=== PATIENT | female | born 1990 | race American Indian/Alaskan Native ===

== ENCOUNTER 2016-09-30 23:59 | Emergency (ER) | payer MEDICAID ==
[2016-10-01 01:28] LABS: Basophils % (Auto) 0.8 % (0.0-1.8); Eosinophils % (Auto) 2.8 % (0.0-4.3); Hematocrit 37.8 % (30.3-42.9); Hemoglobin 12.5 gm/dl (10.1-14.3); Mean Corpuscular HGB Conc 33 % (30-34); Mean Corpuscular Hemoglobin 28 pg (28-32); Mean Corpuscular Volume 86 fl (79-97); Platelet Count 320 K/mm3 (140-440); Red Blood Count 4.42 M/mm3 (3.65-5.03); Red Cell Distribution Width 13.7 % (13.2-15.2)
[2016-10-01 01:41] LABS: Anion Gap 13 mmol/L; BUN/Creatinine Ratio 13.75; Blood Urea Nitrogen 11 mg/dL (7-17); Calcium 8.9 mg/dL (8.4-10.2); Carbon Dioxide 26 mmol/L (22-30); Glucose 105 mg/dL (65-100); Potassium 3.7 mmol/L (3.6-5.0); Sodium 135 mmol/L (137-145)
[2016-10-01 01:43] LABS: Creatine Kinase MB 1.3 ng/mL (0.0-4.0)
--- NOTE | 2016-10-01 04:22 | Cat Scan Report ---
FINAL REPORT PROCEDURE: CT HEAD/BRAIN WO CON TECHNIQUE: Computerized tomography of the head was performed without contrast material. HISTORY: headache worsening COMPARISON: No prior studies are available for comparison. FINDINGS: Skull and scalp: Normal. Paranasal sinuses: Normal. Ventricles and subarachnoid spaces: Normal. Cerebrum: No evidence of hemorrhage, acute infarction or mass . Cerebellum and brainstem: No evidence of hemorrhage, acute infarction or mass. Vasculature: Normal. Comments: None. IMPRESSION: Normal Examination
--- NOTE | 2016-10-01 04:38 | Emergency Department Report ---
ED Headache HPI - General Chief Complaint: Headache Stated Complaint: HEADACHE/DIZZINESS Time Seen by Provider: 10/01/16 02:50 - History of Present Illness Initial Comments: 26-year-old female past medical history migraines presents with a complaint of 3 days of migraine headache. Patient denies any fever or chills no nausea or vomiting. Patient is awake alert and oriented 3 not in acute distress. Patient states she felt significant headache earlier but has since resolved. Patient states that intermittently for the last 3 days she had sensation of tingling in her fingers associated with headache. Patient speaking in full sentences is awake alert and oriented 3 denies any photo or phonophobia, as any blurry vision, denies any dizziness, his fully lucid during interview, denies any upper or lower extremities paresthesias no reports of slurred speech or paralysis. Denies any neck rigidity. Denies any recent head or neck trauma. Denies any drug use. Denies any difficulty speaking denies any facial paresthesias. Patient states she has not seen a neurologist for this issue. does not have PMD Timing/Duration: episodic, waxing and waning Quality: mild Head Injury Location: frontal Recent Head Trauma: frequent headaches Allergies/Adverse Reactions: Allergies No Known Allergies Allergy (Verified 08/02/14 05:50) Home Medications: Ambulatory Orders Nitrofurantoin Freeborn/M-Cryst [Macrobid] 100 mg PO Q12HR #14 capsule 08/02/14 Acetaminophen/Codeine [Acetaminophen-Codeine #3 TAB] 1 tab PO Q6H PRN #20 tab Cephalexin [Keflex] 500 mg PO Q6H #28 capsule 09/03/14 Cyclobenzaprine HCl [Flexeril 5mg] 5 mg PO QHS #15 tablet 09/03/14 Naproxen [Naprosyn TAB] 500 mg PO BID PRN #30 tablet 10/01/16 ED Review of Systems ROS: Stated complaint: HEADACHE/DIZZINESS Other details as noted in HPI Constitutional: denies: chills, fever Eyes: denies: eye pain, eye discharge, vision change ENT: denies: ear pain, throat pain Respiratory: denies: cough, shortness of breath, wheezing Cardiovascular: denies: chest pain, palpitations Endocrine: no symptoms reported Gastrointestinal: denies: abdominal pain, nausea, diarrhea Genitourinary: denies: urgency, dysuria, discharge Musculoskeletal: denies: back pain, joint swelling, arthralgia Skin: denies: rash, lesions Neurological: headache, paresthesias (sensation of tingling in fingers with episode of headache). denies: weakness Psychiatric: denies: anxiety, depression Hematological/Lymphatic: denies: easy bleeding, easy bruising ED Past Medical Hx - Past Medical History Previous Medical History?: Yes Additional medical history: Headaches with Dizziness - Surgical History Past Surgical History?: Yes Additional Surgical History: x 2 - Social History Smoking Status: Never Smoker Substance Use Type: None - Medications Home Medications: Home Medications Medication Instructions Recorded Confirmed Last Taken Type Nitrofurantoin Freeborn/M-Cryst 100 mg PO Q12HR #14 capsule 08/02/14 Unknown Rx [Macrobid] Acetaminophen/Codeine 1 tab PO Q6H PRN #20 tab 09/03/14 Unknown Rx [Acetaminophen-Codeine #3 TAB] Cephalexin [Keflex] 500 mg PO Q6H #28 capsule 09/03/14 Unknown Rx Cyclobenzaprine HCl [Flexeril 5mg] 5 mg PO QHS #15 tablet 09/03/14 Unknown Rx Naproxen [Naprosyn TAB] 500 mg PO BID PRN #30 tablet 10/01/16 Unknown Rx ED Physical Exam - General Limitations: No Limitations General appearance: alert, in no apparent distress - Head Head exam: Present: atraumatic, normocephalic - Eye Eye exam: Present: normal appearance, PERRL, EOMI - ENT ENT exam: Present: mucous membranes moist - Neck Neck exam: Present: normal inspection - Respiratory Respiratory exam: Present: normal lung sounds bilaterally. Absent: respiratory distress - Cardiovascular Cardiovascular Exam: Present: regular rate, normal rhythm. Absent: systolic murmur, diastolic murmur, rubs, gallop - GI/Abdominal GI/Abdominal exam: Present: soft, normal bowel sounds - Extremities Exam Extremities exam: Present: normal inspection - Back Exam Back exam: Present: normal inspection - Neurological Exam Neurological exam: Present: alert, oriented X3, CN II-XII intact, normal gait - Expanded Neurological Exam Expanded Patient oriented to: Present: person, place, time Speech: Present: fluid speech Cranial nerves: Facial Sensation: Normal Cerebellar function: Finger to Nose: Normal, Heel to [place]: Normal, [place]: Normal Sensory exam: Upper Extremity Light Touch: Normal, Lower Extremity Light Touch: Normal Motor strength exam: RUE: 5, LUE: 5, RLE: 5, LLE: 5 DTR: bicep (R): 3+, bicep (L): 3+, tricep (R): 3+, tricep (L): 3+, knee (R): 3+ , knee (L): 3+ Best Eye Response ([place]): (4) open spontaneously Best Motor Response ([place]): (6) obeys commands Best Verbal Response ([place]): (5) oriented [place] Total: 15 - Psychiatric Psychiatric exam: Present: normal affect, normal mood - Skin Skin exam: Present: warm, dry, intact, normal color. Absent: rash ED Course Vital Signs 10/01/16 00:06 Temperature 98.7 F Pulse Rate 79 Respiratory 18 Rate Blood Pressure 123/75 [Right] O2 Sat by Pulse 100 Oximetry ED Medical Decision Making - Lab Data Result diagrams: 10/01/16 01:01 10/01/16 01:01 - Medical Decision Making A/P: Migraine headache 1-labs within normal limits, patient has no current headache spontaneously resolved ED stay 2-patient has no neuro deficits on exam, deep tendon reflexes intact, sensation intact upper and lower extremities, proprioception intact, cerebellar tests normal, no facial paresthesias no facial palsy, no slurred speech. 3-naproxen 500 mg when necessary for headache 4-CT head within normal limits 5- I referred patient to primary care and neurology and advised her to return for any sensation of persistent paresthesias, paralysis any fever chills nausea vomiting or neck rigidity associated with headache Critical care attestation.: If time is entered above; I have spent that time in minutes in the direct care of this critically ill patient, excluding procedure time. ED Disposition Clinical Impression: Headache Qualifiers: Headache type: tension-type Headache chronicity pattern: episodic headache Intractability: not intractable Qualified Code(s): G44.219 - Episodic tension- type headache, not intractable Disposition: DISCHARGED TO HOME OR SELFCARE Is pt being admited?: No Does the pt Need Aspirin: No Condition: Stable Instructions: Migraine Headache (ED), Tension Headache (ED), Acute Headache (ED ) Prescriptions: Naproxen [Naprosyn TAB] 500 mg PO BID PRN #30 tablet PRN Reason: Headache Referrals: CROW LEVIN MD [Staff Physician] - 3-5 Days FLEX TIMMONS MD [Staff Physician] - 3-5 Days Forms: Work/School Release Form(ED) Time of Disposition: 04:38
[2016-10-01 04:56] VITALS: BP 125/68
== END 2016-10-01 04:55 | disposition home or self-care (01) ==
LOC: ED 23:59
DX: G44.219 Episodic tension-type headache, not intractable (principal)
CPT/HCPCS: 36415; 70450; 80048; 82550; 82553; 82962; 84484; 84703; 85025; 93005; 93010